=== PATIENT | male | born 1990 | race Caucasian/White ===

== ENCOUNTER 2018-09-22 21:02 | Emergency (ER) | payer SELFPAY ==
[2018-09-22 21:26] VITALS: O2SAT 99
--- NOTE | 2018-09-22 21:52 | ED.PDOC ---
History of Present Illness - General Chief Complaint: Back Pain or Injury Stated Complaint: back spasms Time Seen by Provider: 09/22/18 21:49 Source: patient, RN notes reviewed, Vital Signs reviewed Additional Information: 27 YEAR OLD WHITE MALE WOKE UP WITH SEVERE BACK PAIN AND MUSCLE SPASM HE HAS BEEN DIAGNOSED WITH LUPUS THAT HE MANAGES WITH IBUPROFEN HE DENIES URINARY SYMPTOMS NO RADIATION OF PAIN TO THE LOWER EXTREMITY NO TESTICULAR PAIN NO HEMATURIA HAS GOOD SPHINCTER CONTROL AND NO WEAKNESS OF EXTREMITY - History of Present Illness Timing/Duration: 7-24 hours Quality/Severity: moderate, sharpness Back Pain Location: lumbar spine, paraspinous muscles Allergies/Adverse Reactions: Allergies NO KNOWN ALLERGY Allergy (Verified 09/22/18 22:03) Home Medications: Ambulatory Orders Acetamin W/Cod #3 Tab [Tylenol w/CODEINE #3] 1 ea PO Q6HR PRN #40 tab 09/22/18 Cyclobenzaprine HCl [Flexeril] 10 mg PO Q8HR #30 tab 09/22/18 Review of Systems - Review of Systems Constitutional: States: no symptoms reported EENTM: States: no symptoms reported Respiratory: States: no symptoms reported Cardiology: States: no symptoms reported Gastrointestinal/Abdominal: States: no symptoms reported Genitourinary: States: no symptoms reported Musculoskeletal: States: see HPI Skin: States: no symptoms reported Neurological: States: no symptoms reported Endocrine: States: no symptoms reported Past Medical History (General) - Patient Medical History Hx Seizures: No Hx Stroke: No Hx Dementia: No Hx Asthma: No Hx of COPD: No Hx Cardiac Disorders: No Hx Congestive Heart Failure: No Hx Pacemaker: No Hx Hypertension: No Hx Thyroid Disease: No Hx Diabetes: No Hx Gastroesophageal Reflux: No Hx Renal Disease: No Hx of HIV: No Hx MRSA: No Surgical History: no surgical history - Vaccination History Hx Tetanus, Diphtheria Vaccination: No Hx Influenza Vaccination: No Hx Pneumococcal Vaccination: No Immunizations Up to Date: No - Social History Hx Tobacco Use: Yes Hx Alcohol Use: No Family Medical History - Family History Mother Family History: Unknown Physical Exam - Physical Exam General Appearance: Alert, Obvious distress, Well Developed, Well Groomed Eyes, Ears, Nose, Throat Exam: PERRL/EOMI, normal ENT inspection, TMs normal, pharynx normal Neck Exam: non-tender, full range of motion, normal alignment, normal inspection Cardiovascular/Respiratory: regular rate, rhythm, no M/R/G, normal peripheral pulses, no JVD, normal breath sounds Gastrointestinal/Abdominal: normal bowel sounds, non tender, soft, no organomegaly, no pulsatile mass Back Exam: normal inspection, no CVA tenderness, no vertebral tenderness Neurologic: manager scientific II-XII nml as tested, no motor/sensory deficits, alert, normal mood/affect, oriented x 3 Departure - Departure Clinical Impression: Lumbago, Lupus arthritis Time of Disposition: 22:03 Disposition: Discharge to Home or Self Care Condition: Good Departure Forms: ED Discharge - Pt. Copy, Patient Portal Self Enrollment Home Medications: Ambulatory Orders Acetamin W/Cod #3 Tab [Tylenol w/CODEINE #3] 1 ea PO Q6HR PRN #40 tab 09/22/18 Cyclobenzaprine HCl [Flexeril] 10 mg PO Q8HR #30 tab 09/22/18
[2018-09-22] MEDS: ORPHENADRINE CITRATE 30 MG/ML AMP IM PRN (21:59)
[2018-09-22] MEDS: KETOROLAC TROMETHAMINE INJ 30 MG/ML VIAL IV ONE (22:05)
[2018-09-22] MEDS: KETOROLAC TROMETHAMINE INJ 30 MG/ML VIAL IM ONE (22:05)
[2018-09-22 22:15] VITALS: BP 91/70; TEMP 98.8
== END 2018-09-22 22:15 | disposition home or self-care (01) ==
LOC: ER 21:02
DX: M54.5 Low back pain (principal); M32.19 Other organ or system involvement in systemic lupus erythematosus; Z87.891 Personal history of nicotine dependence
CPT/HCPCS: J1885; J2360